=== PATIENT | female | born 1980 | race Caucasian/White ===

== ENCOUNTER 2017-07-27 08:59 | Emergency (ER) | payer OTHER ==
[~2017-07-27] VITALS: Ht 165.1 cm; Wt 52.0 kg
[2017-07-27] MEDS ORDERED: VITA400C14 PO (10:16)
[2017-07-27] MEDS ORDERED: CHOL200074 PO (10:16)
[2017-07-27] MEDS ORDERED: SODIUM CHLORIDE FLUSH 10ML SYR IVF ONE (11:00)
[2017-07-27 11:15] LABS: HEMATOCRIT 45.1 % (34.6-47.8); HEMOGLOBIN 15.1 g/dL (11.7-16.4)
[2017-07-27 11:29] LABS: ASPARTATE AMINO TRANSFERASE 12 U/L (15-37); BLOOD UREA NITROGEN 14 mg/dL (7-18)
[2017-07-27 12:12] VITALS: BP 108/69
== END 2017-07-27 13:28 | disposition home or self-care (01) ==
LOC: ED 11:54
DX: R10.32 Left lower quadrant pain (principal)
CPT/HCPCS: 36415; 74176; 80053; 81001; 83690; 84703; 85025; 87086; 99285

== ENCOUNTER → 2017-07-30 | Outpatient (CLI) | payer OTHER ==
[~2017-07-30] MED LIST: CHOL200074 PO; VITA400C14 PO
[2017-07-30 12:40] LABS: HEMATOCRIT 41.6 % (34.6-47.8); HEMOGLOBIN 13.9 g/dL (11.7-16.4); WHITE BLOOD COUNT 6.6 x10^3/uL (3.4-10)
== END | disposition home or self-care (01) ==
LOC: STAR 11:31
PROVIDERS: ATTEND Obstetrics & Gynecology
DX: Z01.818 Encounter for other preprocedural examination (principal); R10.2 Pelvic and perineal pain
CPT/HCPCS: 36415; 84703; 85025

== ENCOUNTER 2017-08-11 12:03 | Day surgery (SDC) | payer OTHER ==
[2017-07-30 12:05] VITALS: BP 110/72
[~2017-08-11] VITALS: Ht 165.1 cm; Wt 54.5 kg
[~2017-08-11 12:03] MED LIST changes: +BUPIVACAINE/PF 0.25% ONE; +EPINEPHRINE 1 MG/ML, 1ML ONE
[2017-08-11] MEDS ORDERED: LACTATED RINGERS 1,000 ML IV SCH (12:34)
[2017-08-11 12:35] VITALS: BP 110/72
[2017-08-11 12:51] LABS: HCG UR LOT HCG706132
[2017-08-11 12:58] LABS: HCG UR OBC PASS
[2017-08-11] MEDS ORDERED: LIDOCAINE 1%, 2ML SQ PRN (13:00)
[2017-08-11] MEDS ORDERED: FENTANYL PF 250 MCG/5ML ONE (13:41)
[2017-08-11] MEDS ORDERED: MIDAZOLAM 1 MG/ML, 2ML ONE (13:41)
[2017-08-11] MEDS ORDERED: ROCURONIUM 10 MG/ML,10ML ONE (13:42)
[2017-08-11] MEDS ORDERED: DEXAMETHASONE 4 MG/ML, 1ML ONE ×2 (13:42)
[2017-08-11] MEDS ORDERED: ONDANSETRON 2MG/ML, 2ML ONE (13:42)
[2017-08-11] MEDS ORDERED: PROPOFOL 10 MG/ML, 20ML ONE (13:42)
[2017-08-11] MEDS ORDERED: KETOROLAC 30 MG/1 ML ONE (13:42)
[2017-08-11] MEDS ORDERED: CEFAZOLIN 1,000 MG ONE ×2 (13:42)
[2017-08-11] MEDS ORDERED: METHYLENE BLUE 10 MG/ML 10ML ONE (13:51)
[2017-08-11] MEDS ORDERED: GLYCOPYRROLATE 0.2MG/1ML, 5ML ONE (14:33)
[2017-08-11] MEDS ORDERED: METHYLENE BLUE 10 MG/ML 10ML INJ ONE (14:36)
[2017-08-11] MEDS ORDERED: BUPIVACAINE/PF 0.25% INFIL ONE (14:36)
[2017-08-11] MEDS ORDERED: NEOSTIGMINE 1 MG/ML, 10ML ONE (15:10)
[2017-08-11] MEDS ORDERED: ACETAMINOPHEN 325 MG TABLET PO PRN (15:30)
[2017-08-11] MEDS ORDERED: HYDROcodone/APAP 7.5-325MG/15ML UDC PO PRN (15:30)
[2017-08-11] MEDS ORDERED: PROMETHAZINE 25 MG/ML, 1ML IV PRN (15:30)
[2017-08-11] MEDS ORDERED: HYDROcodone/APAP 7.5-325MG/15ML UDC ONE (15:41)
[2017-08-11] MEDS ORDERED: MEPERIDINE/PF 50 MG/ML ONE (15:41)
[2017-08-11] MEDS: MEPERIDINE/PF 25MG/0.5ML IVPush PRN ×2 (15:43→15:58)
[2017-08-11] MEDS ORDERED: HYDROcodone/APAP 5/325 TABLET PO PRN (17:30)
[2017-08-11] MEDS ORDERED: HYDROcodone/APAP 5/325 TABLET ONE (17:32)
== END 2017-08-11 18:15 ==
LOC: OUT 12:03
PROVIDERS: ATTEND Obstetrics & Gynecology
DX: N94.6 Dysmenorrhea, unspecified (principal); N80.3 Endometriosis of pelvic peritoneum; O03.9 Complete or unspecified spontaneous abortion without complication; K21.9 Gastro-esophageal reflux disease without esophagitis
CPT/HCPCS: 52000; 58662; 81025; 88112; 88305; J0171; J0690; J1100; J1885; J2175; J2250; J2405; J2704; J2710; J3010; J3490; J7120; Q9968